=== PATIENT | male | born 1950 | race Caucasian/White ===

== ENCOUNTER 2018-04-24 13:47 | Emergency (ER) | payer MEDICARE, MEDICAID ==
[2018-04-24 15:39] LABS: BILIRUBIN,URINE NEGATIVE (NEG); CLARITY,URINE TURBID; COLOR,URINE ORANGE; GLUCOSE,URINE NEGATIVE (NEG); NITRITE,URINE POSITIVE (NEG); PROTEIN,URINE 100 mg/dL (NEG-TRACE)
[2018-04-24 15:48] LABS: BACTERIA,URINE MANY /HPF (0-FEW); RBC,URINE >40 /HPF (0-2); SQUAMOUS EPITHELIAL CELL,UR OCC /LPF; WBC,URINE TNTC /HPF (0-4)
[2018-04-24 15:52] LABS: AMORPHOUS SEDIMENT,UR PRESENT /HPF
[2018-04-24 15:53] LABS: HYALINE CASTS, URINE OCCASIONAL /HPF
[2018-04-24] MEDS: cefTRIAXone IM 1 GM VIAL IM (16:40)
== END 2018-04-24 16:54 | disposition home or self-care (01) ==
LOC: ER 16:54
DX: T83.091A Other mechanical complication of indwelling urethral catheter, initial encounter (principal); N39.0 Urinary tract infection, site not specified
CPT/HCPCS: 51702; 81001; 96372; 99285; J0696